=== PATIENT | female | born 1965 | race African-American/Black ===

== ENCOUNTER 2016-08-11 12:42 | Emergency (ER) | payer OTHER ==
[~2016-08-11] VITALS: Ht 165.1 cm; Wt 62.5 kg
[~2016-08-11 12:42] MED LIST: FELODIPINE ER10 MG PO; IBUPROFEN800 MG PO; METHIMAZOLE5 MG PO; RANITIDINE HCL150 M1 PO; TOPAMAX25 MG PO
[2016-08-11 16:08] VITALS: BP 152/101
== END 2016-08-11 16:10 | disposition home or self-care (01) ==
LOC: EME 12:42
DX: R09.89 Other specified symptoms and signs involving the circulatory and respiratory systems (principal); I10 Essential (primary) hypertension; E05.00 Thyrotoxicosis with diffuse goiter without thyrotoxic crisis or storm; Z87.891 Personal history of nicotine dependence
CPT/HCPCS: 74220; 99281; 99284